=== PATIENT | female | born 1960 | race Caucasian/White ===

== ENCOUNTER → 2023-10-28 10:15 | Outpatient (CLI) | payer OTHER, SELFPAY ==
--- NOTE | 2023-10-28 | DI.RAD.S_ITS ---
PROCEDURE: FL BARIUM SWALLOW W SPEECH INDICATIONS: Dysphagia, unspecified COMPARISON: None. TECHNIQUE: Examination was conducted in conjunction with speech pathology per standard protocol. In the lateral projection, filming was performed of the patient swallowing. AP projection filming may also be performed with patient swallowing. COMPARISON: FINDINGS: Function: The oral preparatory phase appears normal, with proper containment. The subsequent oral propulsive phase, pharyngeal phase, and esophageal phase of swallowing also appear normal with all proffered substances. Flash penetration with thin liquid barium. No aspiration. No pathologic vallecular pooling. Morphology: No cricopharyngeal bar is identified. No cervical esophageal webs. No Zenker's diverticulum. There is circumferential thickening of the lower esophagus, with shouldering. IMPRESSION: Circumferential thickening of the lower esophagus, with shouldering of the mucosa. Recommend direct visualization with GI referral/endoscopy. Dictated by: Hira Ulloa M.D. on 10/28/2023 at 15:10 Approved by: Hira Ulloa M.D. on 10/28/2023 at 15:12
--- NOTE | 2023-10-28 14:13 | ST.SWALLOW ---
Visit Care Team Role Provider Type GILLIAN Ching Primary Care Provider Non-Staff Specialty: Family Practice Address: [address], [place], [address] Email: Kathy Rao MD Attending Provider Non-Staff Referring Provider Specialty: Internal Medicine Address: [address] [place] [address], [phone] Email: Modified Barium Swallow Study [employer] Modified Barium Swallow Study Start: 10/28/23 12:50 Freq: Status: Active Protocol: Document 10/28/23 13:04 LNK (Rec: 10/28/23 14:11 LNK [id number]) Modified Barium Swallow Study Total Time Visit Start Time 10:30 Visit Stop Time 11:15 Total Visit Minutes [address] Rao Reason for Referral dysphagia Setting Setting Outpatient Care Patient Information Identification Type Name,Date of Patient History Pt was seen for a Modified Barium Swallow Study at he referral of Dr. Rao. Pt c/o difficulty swallowing noting she can't swallow, reporting foods and liquids getting stuck in her throat, sometimes coming back up into her throat. She reports her diet is restricted to a liquid diet as she cannot swallow solids or larger pills. Pt's PMH includes clinically severe COPD. She stated that she us on 4L O2 with inhaler therapy 4 times a day. Pt reported 3 hospitalizations in 2021, including at [facility], requiring mechanical ventilation. Pt also described her stomach as angry and thinks she has GERD, but was not sure of a formal diagnosis. Subjective Observations pt entered the fluoroscopy room via wheel chair with O2 equipment in place. Pt appeared to be anxious about the procedure stating I can' t swallow that. The MBSS procedure was described for the pt, who agreed to the liquid trials, but not the semi-solid, solid, or tablet trials as she was worrying about them sticking in her throat and being unable to swallow. After assuring the pt that thin and nectar thick liquids will be trialed initially, with additional trials at pt's discretion the pt agreed to proceed. Patient Positioning Position View Lat-A/P Imaging Lateral View Textures Administered Trials Presented Thin Liquid via Spoon (IDDSI 0 ),Thin Liquid via Cup (IDDSI 0 ),Mildly Thick Liquid via Spoon (IDDSI 2),Mildly Thick Liquid via Cup (IDDSI 2) Barium Tablet No The IDDSI Framework Protocol: IDDSI.1 Oral Impairment Source: The Modified Barium Swallow Impairment Profile (MBSImP??) Lip Closure No labial escape Tongue Control During Bolus Hold Cohesive bolus between tongue to palatal seal Bolus Transport/Lingual Motion Delayed initiation of tongue motion Oral Residue Trace residue lining oral structures Initiation of Pharyngeal Swallow Bolus head at pyriforms Additional Oral Impairment Observations OME and DKS were observed to be WNL. White spots were noted on the pt's right faucial pillar. The pt denied pain in her throat. Good liquid bolus control and AP transition noted. Mastication not observed. Swallow initiation was delayed. Pharyngeal Impairment Source: The Modified Barium Swallow Impairment Profile (MBSImP??) Soft Palate Elevation No bolus between soft palate & pharyngeal wall Laryngeal Elevation Part.sup.move.thyroid cart/ part.approx.arytenoids to epiglot.petiole Anterior Hyoid Excursion Partial anterior movement Epiglottic Movement Partial inversion Laryngeal Vestibular Closure Complete; no air/contrast in laryngeal vestibule Pharyngeal Stripping Wave Present - complete Pharyngoesophageal Segment Opening Complete distention & complete duration; no obstruction of flow Tongue Base Retraction Trace column of contrast/air betwn tongue base & post. pharyngeal wall Pharyngeal Residue Trace residue within/on pharyngeal structures Location Diffuse (>3 areas) Additional Pharyngeal Impairment Mild pharyngeal dysphagia Observations observed with tongue base weakness, mildly reduced hyolaryngeal elevation and movement and slightly incomplete inversion of the epiglottis. The laryngeal vestibule and posterior pharyngeal wall were noted to function WNL. No laryngeal penetration or aspiration were observed across all trials. A/P View Textures Administered Trials Presented Mildly Thick Liquid via Cup ( IDDSI 2) The IDDSI Framework Protocol: IDDSI.1 A/P View Observations Pharyngeal Contraction Complete Esophageal Clearance Upright Position Esophageal retention w/ regtrograde flow below pharyngoesoph segment Vocal Fold Function Good Esophageal Function Slowed Clearing,Poor Motility, Reverse Peristalsis,Stasis, Narrowing Additional A-P Observations The pt was repositioned to the AP position. A trial of nectar thick liquid was completed. The esophageal phase of the swallow was observed to indicate, significant retention of the liquid trials with retrograde flow below the PES. Esophageal narrowing was noted from the mid chest area to the stomach with no apparent relaxation of the esophagus directly observed. The pt c/o of discomfort with the liquid stuck in [her] throat. The pt refused additional trials. GI referral is recommended. Clinical Impressions Dysphagia Type Esophageal Findings PLEASE REVIEW THE ORAL, PHARYNGEAL AND ESOPHAGEAL SWALLOW PHASES FOR DETAILED DESCRIPTION OF OBSERVATIONS Patient Appropriate for Therapy No Recommendations Diet Liquids Order Thin (IDDSI 0) Diet Order Liquidised (IDDSI 3) Medication Recommendation As Tolerated Comments No changes in the pt's current diet recommended Treatment Plan Recommended Referrals GI Consult
== END ==
PROVIDERS: PCP Registered Nurse; Referring Provider Internal Medicine; Visit Provider Internal Medicine
DX: R13.10 Dysphagia, unspecified (principal)
CPT/HCPCS: 74230; 92611